=== PATIENT | male | born 1945 | race Caucasian/White ===

== ENCOUNTER 2021-06-17 09:39 | Inpatient (IN) | payer MEDICARE, SELFPAY ==
[2021-06-17] VITALS (65 sets, daily range): BP systolic 112–177; BP diastolic 60–102; PULSE 56–101; RESP 0–27; TEMP 36.6–36.9; O2SAT 86–99; BMI 31.3
--- NOTE | 2021-06-17 09:47 | XR_ITS ---
WS: [id number] PORTABLE CHEST HISTORY: dyspnea COMPARISON: 07/01/2007 Lung volumes are decreased. There is very mild reticular interstitial thickening at the LEFT lung bas e and lingula. This may all be related to poor inspiration. Pneumonitis is not excluded. No pleural e ffusion or pneumothorax. Cardiac size: Normal. Mediastinum/Aorta: Mild atherosclerosis aorta. No osseous abnormality seen. XR/XR chest 1V portable 45820 IMPRESSION: 1. Poor inspiration. 2. Thickened areas of reticulation in the LEFT lower lung field. May be relate d to atelectasis and poor inspiration but similar findings can be seen with pne umonitis.
--- NOTE | 2021-06-17 09:47 | ECG_ITS ---
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 Measurements Intervals [place] Rate: 60 P: 54 TN: 224 QRS: -13 QRSD: 107 T: 6 QT: 445 QTc: 447 Interpretive Statements SINUS RHYTHM WITH FIRST DEGREE AV BLOCK WITH OCCASIONAL SUPRAVENTRICULAR PREMATURE COMPLEXES No previous ECG available for comparison Electronically Signed On 06-17-2021 22:14:45 CDT by Dipti Shah M.D. [id number]
--- NOTE | 2021-06-17 09:47 | CT_ITS ---
WS: [id number] CT ANGIOGRAM CEREBRAL AND CAROTID ARTERIES HISTORY: CVA TECHNIQUE: CT angiogram is performed of the carotid and cerebral arteries. During arterial injection imaging is obtained from the skull vertex to the aortic arch in 1.25 mm imaging. Coronal and sagittal reformats are submitted. Additional multi planar reformats of the carotid and cerebral arteries are submitted, MIP imaging also reviewed. NASCET criteria utilized. [facility] CT scans at [facility] e at least one of these dose optimization techniques: automated exposure control; mA and/or kV adjust ment per patient size (includes targeted exams where dose is matched to clinical indication); or iter ative reconstruction. CONTRAST: Omnipaque 350; 95 mL IV. DLP: 2519.84 mGy.cm COMPARISON: Noncontrast CT head. Carotid Angiogram: Right carotid: Common carotid artery: Arises normally from the innominate artery. No significant plaque or stenosis. Internal carotid artery: Minimal scattered plaque the bifurcation with no stenosis. External carotid artery: Patent. Left carotid: Common carotid artery: Arises normally from the aorta. No significant plaque or stenosis. Internal carotid artery: Mild plaque and intimal thickening at the bifurcation. External carotid artery: Patent. Right vertebral artery: Unremarkable. Left vertebral artery: Dominant and normally arises from the LEFT subclavian artery. Subclavian arteries: No stenosis or significant abnormality. Upper thorax: Normal. Thyroid gland: Normal. Osseous structures: Increase in cervical lordosis. CEREBRAL ANGIOGRAM: Intracranial vertebral arteries: Dominant LEFT vertebral artery is patent. No thrombus. Normal RIGHT vertebral artery. Basilar artery: No significant stenosis or occlusion. No aneurysm. Intracranial Internal carotid arteries: Opacification through the petrous portion of the intracranial carotid arteries limited but there is no occlusion. No thrombus identified. Moderate scattered plaqu e through the cavernous and supraclinoid portion of the ICA. Middle cerebral arteries: Very mild luminal irregularity. LEFT M1 segment is not as well opacified an d enhancing as the RIGHT. Focal area of nonenhancement in the distal LEFT M1 segment may be an area o f thrombus or stenosis measuring only 3 mm. Anterior cerebral arteries and ACOM: Normal. Posterior cerebral arteries and PCOM's: Normal. Dural venous sinuses are normally enhancing. Mastoid air cells: Normal. Paranasal sinuses: Mild mucoperiosteal thickening in the frontal ethmoid recesses. Calvarium: Normal. CT/CT angio headneck* [id number] IMPRESSION: 1. No cervical carotid significant stenosis. Mild atherosclerosis. 2. Short segment thrombus versus stenosis involving the distal LEFT M1 segment . Additional mild atherosclerotic disease within the LEFT proximal M1 segment. 3. No cerebral aneurysm.
--- NOTE | 2021-06-17 09:47 | CT_ITS ---
WS: [id number] CT HEAD NONCONTRAST HISTORY: Symptoms of Acute Stroke TECHNIQUE: Contiguous axial imaging performed through the brain in 2.5 mm imaging. Bone and soft tiss ue windows. Sagittal and coronal reformats reviewed. All CT scans at [facility] use at least one of these dose optimization techniques: automated exposure control; mA and/or kV adjustment per pa tient size (includes targeted exams where dose is matched to clinical indication); or iterative recon struction. DLP: 111-2.45 mGy-cm. COMPARISON: None available. No acute intracranial hemorrhage, midline shift or mass effect. Very mild atrophy and mild chronic microvascular ischemic disease. Ventricles: Normal size with no hydrocephalus. No inferior displacement of the cerebellar tonsils. Clivus and pituitary gland are negative. Paranasal sinuses: Very minimal mucoperiosteal thickening in the frontal ethmoid recesses. No air-flu id levels. Mastoid air cells: Well pneumatized. Calvarium and scalp: Skull is intact with no soft tissue edema or swelling. There is mild increased density in the distal LEFT vertebral artery and also in the RIGHT MCA. Not li lala thrombosis due to the distribution and clinical symptoms. Follow-up angiogram will be performed. CT/CT head wo con* [id number] IMPRESSION: 1. No acute intracranial hemorrhage or edema. 2. Mild atrophy and mild chronic microvascular ischemic disease. Notified J Luis Jarrett DO at 06/17/2021 9:58 AM.
[2021-06-17 10:13] LABS: Basophils # 0.1 10^3/uL (0.0-0.1); Basophils % 0.9 %; Eosinophils # 0.2 10^3/uL (0.0-0.8); Eosinophils % 2.6 %; Hematocrit 49.6 % (42.0-52.0); Hemoglobin 14.9 g/dL (11.7-16.6); Lymphocytes # 2.7 10^3/uL (0.8-4.8); Lymphocytes % 33.9 %; Mean Corpuscular Volume 96.7 fl (80-94); Mean Platelet Volume 10.8 fL (7.4-10.4); Monocytes # 0.8 10^3/uL (0.2-0.9); Monocytes % 10.6 %; Neutrophils # 4.05 10^3/uL (1.8-7.7); Neutrophils % 51.7 %; Nucleated Red Blood Cells % 0 %; Platelet Count 306 10^3/cmm (130-400); Red Blood Count 5.13 10^6/uL (4.1-5.3); Red Cell Distribution Width 14.6 % (12.1-15.1); White Blood Count 7.8 10^3/uL (4.0-10.0)
[2021-06-17 10:16] LABS: Partial Thromboplastin Time 24.5 SECONDS (23.9-36.7)
[2021-06-17 10:17] LABS: Glucose Point of Care 161 mg/dL (70-110)
--- NOTE | 2021-06-17 10:17 | ED_ITS ---
HPI - Neuro Symptoms/Deficit General: Chief Complaint: Neuro Symptoms/Deficit Stated Complaint: STROKE ALERT Time Seen by Provider: 06/17/21 09:47 History of Present Illness: HPI Narrative: 75-year-old male presents emergency room via EMS. Last known normal reported to be 905 a stroke alert was called patient right-sided weakness and complete aphasia. On his arrival here Dr. Fink seen the patient scored him on the NIH score and ordered TPA. Onset (ago): minute(s) Timing confirmed by: spouse Location: speech, right face, right arm and right leg History of same: No Severity: severe Quality: weak and numb Relieving factors: none Exacerbating factors: none Context: sudden onset Associated symptoms: Deny chest pain, cough, diaphoresis, fevers/chills, headache(s), anorexia, malaise, nausea, seizures, short of breath, syncope, tingling, vertigo, vomiting or weakness Treatments Prior to Arrival: none Review of Systems General: Reports: Other (Limited HPI from the .) Const: Denies: malaise or diaphoresis Card: Denies: chest pain or syncope GI: Denies: nausea or vomiting Neuro: Denies: headache(s) or vertigo NIH stroke score NIHSS: Level Of Consciousness - 1a: 0 Level Of Consciousness Questions - 1b: One Correct Level Of Consciousness Commands - 1c: Both Correct Best Gaze - 2: Normal Visual Galvez - 3: No Visual Loss Facial Palsy - 4: Normal Motor Arm Right - 5: No Drift Motor Arm Left - 5: No Drift Motor Leg Right - 6: No Drift Motor Leg Left - 6: No Drift Limb Ataxia - 7: Absent Sensory - 8: Normal Best Language - 9: Mild/Moderate Aphasia Dysarthia - 10: Normal Extinction And Inattention - 11: 0 Score: Total Score: 2 Physical Exam Const: COMMON NORMALS: no acute distress GENERAL APPEARANCE: cooperative and comfortable ORIENTATION/CONSCIOUSNESS: Yes awake HENMT: COMMON NORMALS: normocephalic, atraumatic, hearing grossly normal bilaterally, external ears normal, EAC's normal, TM's normal bilaterally, Normal nasal mucous membranes and turbinates present, moist oral mucous membranes and oropharynx normal HEAD & SCALP: normocephalic and atraumatic NOSE: Normal nasal mucous membranes and turbinates present EXTERNAL EAR: Yes external ears normal EXTERNAL AUDITORY CANAL: EAC's normal TYMPANIC MEMBRANE: TM's normal bilaterally Eye: COMMON NORMALS: Equal, round and reactive pupils present, EOMs intact bilaterally, conjunctivae normal and no scleral icterus CONJUNCTIVA: Yes conjunctivae normal PUPIL: Yes Equal, round and reactive pupils present Neck/C-Spine: COMMON NORMALS: full ROM, no lymphadenopathy, supple and no JVD Lymph: LYMPHATIC: no lymphadenopathy noted and no lymphedema noted Resp: COMMON NORMALS: normal respiratory effort, No retractions, No use of accessory muscles and clear to auscultation bilaterally AUSCULTATION: clear to auscultation bilaterally Cardio: COMMON NORMALS: no JVD, regular rate, regular rhythm and No murmurs present (Cardio) RATE: regular rate RHYTHM: regular rhythm GI: COMMON NORMALS: Soft to palpation and No hepatosplenomegaly present AUSCULTATION: Yes normoactive bowel sounds PALPATION: Yes Soft to palpation, No Tenderness to palpation present (GI), No Guarding due to palpation present (GI) and Yes No hepatosplenomegaly present Extremity: COMMON NORMALS: normal to inspection, capillary refill normal, no clubbing, cyanosis or edema, no calf tenderness and no pedal edema Skin: COMMON NORMALS: no rashes or lesions noted GENERAL SKIN EXAM: no rashes or lesions noted Course Vital Signs: Vital signs: Vital Signs Temperature 97.7 F 06/18/21 18:40 Pulse Rate 63 06/18/21 17:00 Respiratory Rate 16 06/18/21 17:00 Blood Pressure 151/77 06/18/21 17:30 Pulse Oximetry 96 06/18/21 13:30 MDM - Neuro Symptoms/Deficit MDM Narrative: Medical decision making narrative: Initially patient was completely aphasic. That improved and his sided weakness had improved. We will go ahead and admit discussed with hospitalist. Orders written admit to the ICU. Lab Data: Labs: Lab Results 06/17/21 06/17/21 06/17/21 09:43 09:43 09:43 WBC 7.8 10^3/uL 10^3/ uL (4.0-10.0) RBC 5.13 10^6/uL 10^6 /uL (4.1-5.3) Hgb 14.9 g/dL g/dL (11.7-16.6) Hct 49.6 % % (42.0-52.0) MCV 96.7 fl H fl (80-94) MCH 29.0 pg pg (28.0-34.0) MCHC 30.0 g/dL g/dL (30.0-36.0) RDW 14.6 % % (12.1-15.1) Plt Count 306 10^3/cmm 10^3 /cmm (130-400) MPV 10.8 fL H fL (7.4-10.4) Neut % (Auto) 51.7 % % Lymph % (Auto) 33.9 % % [place] % (Auto) 10.6 % % Eos % (Auto) 2.6 % % Baso % (Auto) 0.9 % % Neut # (Auto) 4.05 10^3/uL 10^3 /uL (1.8-7.7) Lymph # (Auto) 2.7 10^3/uL 10^3/ uL (0.8-4.8) [place] # (Auto) 0.8 10^3/uL 10^3/ uL (0.2-0.9) Eos # (Auto) 0.2 10^3/uL 10^3/ uL (0.0-0.8) Baso # (Auto) 0.1 10^3/uL 10^3/ uL (0.0-0.1) Nucleated RBC % (a uto) 0 % % Nucleated RBCs # 0.0 /100WBC /100W BC PT 13.50 SECONDS SEC ONDS (12.1-14.9) INR 1.00 (0.8-1.2) APTT 24.5 SECONDS SECO NDS (23.9-36.7) Sodium 140 mmol/L mmol/L (136-145) Potassium 3.9 mmol/L mmol/L (3.5-5.1) Chloride 104 mmol/L mmol/L (98-107) Carbon Dioxide 23 mmol/L mmol/L (22-29) Anion Gap 16.9 (5-19) BUN 16 mg/dL mg/dL (8-23) Creatinine 0.9 mg/dL mg/dL (0.7-1.2) GFR Calculation Not Reportable Glucose 151 mg/dL H mg/dL (65-115) POC Glucose Estimat Average Gl ucose Hemoglobin A1c Calculated Osmolal ity 294 mOsm/kg mOsm/ kg (285-295) Calcium 9.3 mg/dL mg/dL (8.5-10.5) Total Bilirubin 0.4 mg/dL mg/dL (0.15-1.2) AST 15 U/L U/L (0-40) ALT 21 U/L U/L (0-41) Alkaline Phosphata se 29 IU/L L IU/L (40-130) Total Protein 7.6 g/dL g/dL (6.6-8.7) Albumin 4.3 g/dL g/dL (3.5-5.2) Globulin 3.3 g/dL g/dL (1.3-4.6) Triglycerides Cholesterol LDL Cholesterol, C alc HDL Cholesterol LDL/HDL Ratio Cholesterol/HDL Ra ramona 06/17/21 06/17/21 06/17/21 09:43 09:43 10:13 WBC RBC Hgb Hct MCV MCH MCHC RDW Plt Count MPV Neut % (Auto) Lymph % (Auto) [place] % (Auto) Eos % (Auto) Baso % (Auto) Neut # (Auto) Lymph # (Auto) [place] # (Auto) Eos # (Auto) Baso # (Auto) Nucleated RBC % (a uto) Nucleated RBCs # PT INR APTT Sodium Potassium Chloride Carbon Dioxide Anion Gap BUN Creatinine GFR Calculation Glucose POC Glucose 161 mg/dL H mg/dL (70-110) Estimat Average Gl ucose 111 Hemoglobin A1c 5.5 % % (4.0-6.0) Calculated Osmolal ity Calcium Total Bilirubin AST ALT Alkaline Phosphata se Total Protein Albumin Globulin Triglycerides 148 mg/dL mg/dL (0-150) Cholesterol 203 mg/dL H mg/dL (0-200) LDL Cholesterol, C alc 137 mg/dL H mg/dL (50-129) HDL Cholesterol 36 mg/dL L mg/dL (60-100) LDL/HDL Ratio 3.81 RATIO H RATI O (0.00-3.22) Cholesterol/HDL Ra ramona 5.64 mg/dL H mg/d L (1.0-5.00) Critical Care Time Critical Care Time: Critical Care Time: Yes Total Critical Care Time: 20 Attestation: This case had a high probability of a clinically significant, sudden, or life threatening deterioration of this patient's condition which required my full and direct attention, intervention and personal management. Discharge Plan Discharge Patient Disposition: Admitted As Inpatient Admit Provider: Vandana Laughlin Clinical Impression: Cerebrovascular accident Condition: Stable Discharge Diet: Cardiac and Low Cholesterol Discharge Activity: Resume usual activity Coding Level of Care Code ED Passenger Car Cleaning Supervisor for Vlad Herr
--- NOTE | 2021-06-17 10:26 | PM.SAN ---
Stroke Alert Activation ED Arrival Date: 06/17/21 ED Arrival Time: 09:38 ED Physican at Bedside: 09:47 Last Known Normal/at Baseline: < 1 hour ago Other Last Known Well Infomation: Stroke alert was activated by [facility] at 09 27 for this 75-year-old man who had witnessed onset of right hemiplegia, global aphasia and left gaze preference while he was with his . They had an intimate experience and he was talking normally when he stepped onto the scales in the bathroom and suddenly lost the ability to speak. When [facility] arrived he was flaccid on the right side, globally aphasic and had a left gaze preference. I was present as EMS brought him into CAT scan and those were the findings on exam. He had no response to threat on the right visual galvez. CAT scan was completed and showed no abnormalities. The [place] was well visualized and there was no gross clot. I sent the nurse back to obtain the TPA and mix it up and accompanied the patient to be weighed and onto his room. I found his in the waiting room, talked with her by phone and asked her to come back and review the history and agreed to TPA treatment. I examined the patient multiple times in the course of his transfer back to the room and then again prior to bolus of TPA. His physical exam improved by the time he completed his CT of the head but he continued to demonstrate dense receptive aphasia to the point that he could follow no commands, even simple commands, and did not follow visual cues. He went from speaking garbled repetitive sounds to I am fine which he stated with any stimulation. He continued to demonstrate right visual field cut to threat, weakness of the right side of the face and drift of the right upper extremity but not the leg. His score on NIH stroke scale at the time of bolus was 12. Bolus was administered at 0959, 56 minutes from time of symptom onset and 21 minutes from arrival to the emergency department. I took time to talk with the patient's about his stroke and I used the stroke education manual to help her understand his deficit and the blood clot causing the deficit. The appropriate treatment with TPA was reviewed. Plan of care was reviewed with Dr. Jarrett and the patient will be going for CT angiogram to make sure he does not have a clot that could be removed by embolectomy. Since he had onset of symptoms after intimate relations with his it would be a good idea not only to perform transthoracic echocardiogram but go ahead with transesophageal echocardiogram as soon as possible to rule out PFO. Stroke Alert Activated by: [facility] Stroke Alert Activation Time: : Stroke MD @ Bedside Time: : NIH Stroke Scale Time: :45 NIH stroke score NIHSS: Level Of Consciousness - 1a: 2 Level Of Consciousness Questions - 1b: Neither Correct Level Of Consciousness Commands - 1c: Neither Correct Best Gaze - 2: Normal Visual Galvez - 3: Partial Hemianopia Facial Palsy - 4: Partial Paralysis Motor Arm Right - 5: Drift Motor Arm Left - 5: No Drift Motor Leg Right - 6: No Drift Motor Leg Left - 6: No Drift Limb Ataxia - 7: Present In One Limb Sensory - 8: Normal Best Language - 9: Severe Aphasia Dysarthia - 10: Normal Extinction And Inattention - 11: 0 Score: Total Score: 13 Stroke Alert Data/Treatment Time to CT of Head: :38 CT Results Time: :44 CT Impression: Normal Stroke Risk Factors: hypertension tPA Started Time: tPA Started - Time: :59 tPA Admin Prior to Arrival: No Patient & Family Educated on: Cause of Stroke, Risk Factors, Treament Plan, Stroke Education Booklet and tPA Risks/Benefits Standardized Stroke Orders Used: Yes Other Information: CT angiogram stat Critical Care Time Critical Care Time: 30 - 74 mins A&P Assessment and plan (1) Left middle cerebral artery stroke: Healthy 75-year-old man with left middle cerebral artery stroke. Although his symptoms changed from complete left middle cerebral artery or carotid occlusion at presentation, at the present time he still has posterior branch left middle cerebral artery involvement with dense receptive aphasia, right visual field cut and some degree of weakness in the right arm with ataxia. He still has a significant deficit. He would be a candidate for embolectomy if he has an M1 clot. He is in the process of work-up. CTA is planned. I have discussed the case with Dr. Jarrett. I will be in attendance for further treatment. I reviewed the plan with his and went over the stroke book with her. I have been involved in the patient's care for the past hour. Status: Acute Coding Level of Care Code Acute Pigment And Lacquer Mixer for Vlad Herr Diagnoses Left middle cerebral artery stroke I63.512
[2021-06-17 10:31] LABS: Alanine Aminotransferase 21 U/L (0-41); Albumin Level 4.3 g/dL (3.5-5.2); Alkaline Phosphatase 29 IU/L (40-130); Anion Gap 16.9 (5-19); Aspartate Amino Transferase 15 U/L (0-40); Blood Urea Nitrogen 16 mg/dL (8-23); Calcium 9.3 mg/dL (8.5-10.5); Carbon Dioxide 23 mmol/L (22-29); Chloride 104 mmol/L (98-107); Globulin 3.3 g/dL (1.3-4.6); Glucose 151 mg/dL (65-115); Osmolality Calculated 294 mOsm/kg (285-295); Potassium 3.9 mmol/L (3.5-5.1); Sodium 140 mmol/L (136-145); Total Bilirubin 0.4 mg/dL (0.15-1.2); Total Protein 7.6 g/dL (6.6-8.7)
--- NOTE | 2021-06-17 10:50 | PC.PHAR ---
pt unable to verify medications-rx filled on 03/28/21 90d/s for fenofibrate 145mg pts unsure if pt takes-pts verified pts medications
[2021-06-17] MEDS: iohexol 350 mg/mL 100 mL Btl IV (11:21)
--- NOTE | 2021-06-17 20:20 | P.HP_ITS ---
Providers/Chief Complaint Admitting Physician: Vandana Laughlin MD Chief Complaint: STROKE ALERT History of Present Illness Sami Mondragon is a 75 year old male Who presented to the hospital with right hemiplegia, global aphasia, left gaze preference while he was with his . Patient states that he was in the bathroom using the scale and he suddenly lost ability to speak. He said he could not talk and he also experienced right-sided weakness. When he came to the hospital he was given medication and right now he feels a lot better. At the point of admission patient symptoms had resolved and he felt back to his baseline. Chart reviewed and following information is obtained from Dr. Fink's note. Patient presented with global aphasia right hemiplegia left gaze preference stroke alert was activated. NIH stroke scale was 12 on arrival. TPA was given 56 minutes from time of symptom onset and 21 minutes from arrival to emergency department. By the time head CT was completed he continued to demonstrate dense receptive aphasia to the point he could follow commands even simple commands and did not follow visual cues. He went from speaking garbled repetitive sounds to I am fine. Patient did have CT angiogram to rule out possible clot that could be removed by embolectomy. CT angio did show short segment thrombus versus stenosis involving left distal M1 segment. [facility] was called from the ER but they did not believe that patient had an embolus after reviewing images. At this point when patient is seen he feels well and has no complaints. He states he takes a cholesterol medication called fenofibrate at home and feels generally healthy he also has mild high blood pressure for which he takes los chaiyto. He denies any history of strokes in the family and has never had a stroke before. Review of Systems General: Reports: 10 or more systems reviewed and unremarkable except in HPI and below Medications/Allergies Home Medications Medication Instructions Recorded Confirmed Last Taken Type aspirin [Aspir-81] 81 mg PO DAILY 06/17/21 06/17/21 Unknown History fenofibrate nanocrystallized 145 mg PO DAILY 06/17/21 06/17/21 Unknown History glucos sul 9BXs-slp-zkqdw-C-Mn 1 - 2 cap PO DAILY 06/17/21 06/17/21 Unknown History [Glucosamine Chondroitin] losartan 50 mg PO DAILY 06/17/21 06/17/21 Unknown History vit C,A-Zv-wfgmq-lutein-zeaxan 1 cap PO DAILY 06/17/21 06/17/21 Unknown History [PreserVision AREDS-2] Allergies Allergy/AdvReac Type Severity Reaction Status Date / Time No Known Allergies Allergy Verified 06/17/21 10:49 Vitals/I&O/Wt Last Vital Signs Temp 98.4 F 06/17/21 09:49 Pulse 71 06/17/21 19:58 Resp 16 06/17/21 19:58 BP 161/72 06/17/21 19:58 Pulse Ox 98 06/17/21 19:58 06/17/21 06/17/21 06/17/21 06:59 14:59 22:59 Intake Total 100 / 100 Balance 100 / 100 Weight last 48 hrs Weight 110.677 kg Physical Exam Narrative: EXAM NARRATIVE: General: Alert oriented x3, patient seen _sitting up in bed in ER room 11. HEENT: Normocephalic, atraumatic, EOMI, breathing room air Cardio: Regular rate rhythm, normal S1-S2, no murmurs rubs gallops, Respiratory: Good bilateral air entry, no wheezes no rhonchi appreciated GI: Abdomen soft, nontender, nondistended, bowel sounds + Behavior: Appropriate and cooperative Extremities: Pulses 2+, no edema, no cyanosis Neuro: Cranial nerves II to XII intact, strength 4 out of 5 bilateral lower extremities, 4 out of 5 bilateral upper extremities. Strength equal on both sides at this point. Able to answer questions appropriately no focal neurologic deficits noted. Speech clear. Was able to have a conversation with me. Data : 06/17/21 09:43 06/17/21 09:43 A&P Assessment and plan (1) Left middle cerebral artery stroke: Patient diagnosed with left middle cerebral artery stroke We will check lipid panel, hemoglobin A1c We will repeat CT head in a.m. to ensure no hemorrhage Patient did receive TPA We will start aspirin Plavix, atorvastatin 80 mg tomorrow We will order GEO to rule out PFO Dr. Fink will see the patient in 2 weeks time in her clinic Continue neurochecks Monitor in ICU for post TPA care Order physical therapy, OT Fluids: None indicated Electrolytes: Replete as needed Nutrition: N.p.o. until bedside swallow eval. If patient fails that we will do official speech swallow eval Activity: As tolerated. Patient is back to baseline DVT prophylaxis: Patient received TPA today. We will hold prophylaxis for today. Will apply mechanical device. Status: Acute Attestations Medical Necessity Statement*: Needs ICU care today for post tpa Time Spent in Patient Care: 16 - 35 minutes Coding Level of Care Code Acute Photography Sales Associate for Vlad Herr Diagnoses Left middle cerebral artery stroke I63.512
[2021-06-17 20:49] LABS: Estmated Average Glucose 111; Hemoglobin A1C 5.5 % (4.0-6.0)
[2021-06-17 20:55] LABS: Chol HDL Ratio 5.64 mg/dL (1.0-5.00); Cholesterol 203 mg/dL (0-200); HDL Cholesterol 36 mg/dL (60-100); LDL Cholesterol Calculated 137 mg/dL (50-129); LDL HDL Ratio 3.81 RATIO (0.00-3.22); Triglycerides 148 mg/dL (0-150)
--- NOTE | 2021-06-17 21:50 | PC.NURSE ---
On admission to ICU, NIHSS is 2 with patient having minor difficulty finding words to describe items and minor facial paralysis with the inability to smile on the left side. VS are q1 hr x 16. Patient is comfortably watching TV and resting.
[2021-06-17] MEDS: D5-NS 0.45% + KCL 20 mEq 20 MEQ/1,000 ML BAG 100 MEQ IV (22:19)
[2021-06-17] MEDS: atorvastatin 40 mg Tablet 80 MG PO (22:19)
[2021-06-17 22:52] LABS: Lactic Sepsis W/Reflex 1.2 mmol/L (0.5-2.2)
[2021-06-18] VITALS (96 sets, daily range): BP systolic 116–158; BP diastolic 55–80; PULSE 52–87; RESP 6–23; TEMP 36–36.6; O2SAT 93–98; BMI 31.3
[2021-06-18] MEDS: acetaminophen 325 mg Tablet 650 MG PO (03:27)
[2021-06-18 04:57] LABS: Basophils # 0.1 10^3/uL (0.0-0.1); Basophils % 0.8 %; Eosinophils # 0.1 10^3/uL (0.0-0.8); Eosinophils % 1.1 %; Hematocrit 44.6 % (42.0-52.0); Hemoglobin 14.4 g/dL (11.7-16.6); Lymphocytes # 1.3 10^3/uL (0.8-4.8); Mean Corpuscular HGB Conc 32.3 g/dL (30.0-36.0); Mean Corpuscular Hemoglobin 29.3 pg (28.0-34.0); Mean Corpuscular Volume 90.8 fl (80-94); Mean Platelet Volume 10.3 fL (7.4-10.4); Monocytes # 0.7 10^3/uL (0.2-0.9); Neutrophils # 5.73 10^3/uL (1.8-7.7); Neutrophils % 72.7 %; Nucleated Red Blood Cells % 0 %; Platelet Count 255 10^3/cmm (130-400); Red Blood Count 4.91 10^6/uL (4.1-5.3); Red Cell Distribution Width 14.4 % (12.1-15.1); White Blood Count 7.9 10^3/uL (4.0-10.0)
[2021-06-18 05:25] LABS: Alanine Aminotransferase 17 U/L (0-41); Albumin Level 4.2 g/dL (3.5-5.2); Alkaline Phosphatase 28 IU/L (40-130); Anion Gap 12.1 (5-19); Aspartate Amino Transferase 13 U/L (0-40); Blood Urea Nitrogen 10 mg/dL (8-23); Calcium 9.5 mg/dL (8.5-10.5); Carbon Dioxide 26 mmol/L (22-29); Chloride 104 mmol/L (98-107); Globulin 2.9 g/dL (1.3-4.6); Glucose 121 mg/dL (65-115); Osmolality Calculated 286 mOsm/kg (285-295); Potassium 4.1 mmol/L (3.5-5.1); Sodium 138 mmol/L (136-145); Total Bilirubin 0.3 mg/dL (0.15-1.2); Total Protein 7.1 g/dL (6.6-8.7)
--- NOTE | 2021-06-18 08:00 | CT_ITS ---
WS: [id number] CT HEAD NONCONTRAST HISTORY: Follow up. S/P tpa 24 hours TECHNIQUE: Contiguous axial imaging performed through the brain in 2.5 mm imaging. Bone and soft tiss ue windows. Sagittal and coronal reformats reviewed. All CT scans at [facility] use at least one of these dose optimization techniques: automated exposure control; mA and/or kV adjustment per pa tient size (includes targeted exams where dose is matched to clinical indication); or iterative recon struction. DLP: 1204.61 mGy.cm COMPARISON: 06/17/2021 No acute intracranial hemorrhage, midline shift or mass effect. Very mild atrophy and chronic microvascular ischemic change. No hemorrhagic transformation. New area of very subtle decreased attenuation in the posterior LEFT frontal lobe. This may have been the area of infarction but this is very subtle and closely associated with the prominent sulcus. Ventricles: Normal size with no hydrocephalus. Paranasal sinuses: As visualized are clear. Mastoid air cells: Well pneumatized. Calvarium and scalp: Skull is intact with no soft tissue edema or swelling. CT/CT head wo con* [id number] IMPRESSION: 1. No hemorrhagic transformation. 2. Possible tiny lacunar infarct in the posterior LEFT frontal cortex. Indeter minate for the site of recent ischemia.
--- NOTE | 2021-06-18 08:58 | P.PN_ITS ---
Vitals/I&O/Wt Last Vital Signs Temp 97.6 F 06/18/21 03:00 Pulse 59 L 06/18/21 06:00 Resp 13 06/18/21 06:00 BP 138/67 06/18/21 06:00 Pulse Ox 94 06/18/21 06:00 06/17/21 06/18/21 06/18/21 22:59 06:59 14:59 Output Total 300 / 300 800 / 1100 Balance -300 / -200 -800 / -1000 Weight last 48 hrs Weight 244 lb Weight 244 lb Physical Exam Narrative: EXAM NARRATIVE: He was a to repeat a simple phrase with difficulty. He was able to say his name. He has trouble following a complex command. I agree with Dr. Qian Ross that he has hesitation of speech consistent with mild expressive aphasia. His visual field defect has resolved. No drift. Strength full in all 4 extremities. 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 Appropriate management of left middle cerebral artery stenosis involves management of risk factors. Initiate Plavix, aspirin and atorvastatin. I will be glad to see him in the office in several weeks and go over this with him. I went over the stroke book with his yesterday. It would be worthwhile to do MRI with MR angiogram without contrast as an outpatient prior to my visit with him. Status: Acute Attestations Medical Necessity Statement*: Acute stroke treated with TPA Time Spent in Patient Care: less than 15 minutes Coding Level of Care Code Acute Pediatric Dermatologist for Vlad Herr Diagnoses Left middle cerebral artery stroke I63.512
--- NOTE | 2021-06-18 09:23 | PC.CHAP ---
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 [] Patient/Family/Request visit [] Outpatient visit [] Follow-up visit [] Physician referral [] Code/Alert [x] Routine visit [] Staff referral [] Actively dying [] Patient sleeping [] Family support [] [] Out of room [] Palliative care [] [x] Receiving care in room [] Pre-surgical visit [] Trauma [] Long length of stay [x] ICU visit [] Other: Relational/Emotional Strength [] Patient feels connected with others/family/visitors/staff [] Distress [] Loneliness/isolation [] Abandonment Spirituality of Patient [] Person of Rachel [] Attends Sabianism of their Rachel [] Believes in Prayer [] Reads Bible or Lutheran materials [] There are Spiritual issues to be addressed Director Television Interventions [x] Prayer [] Active listening [] Non-anxious presence [] Spiritual/emotional support [] Crisis/trauma care [] Spiritual counseling [] Bereavement support [] Provided bereavement packet [] Provided Bible/devotional materials [] Provided toy/stuffed animal, coloring book to patient or family member [] Provided Communion [] Anointing/[place] [] Salvation [x] Completed spiritual assessment [] Other: Impact on Illness or Injury [] Angry [] Fearful [] Anxious [] Often cries [] Exhaustion [] Unable to work [] Unable to attend restorationism [] Unable to walk/stand [] Unable to read [] Unable to drive [] Unable to eat/drink [] Unable to sleep [] Unable to be with family [] Patient intubated [] Other: Summary Time spent with patient
[2021-06-18 10:43] LABS: Basophils % 0.5 %; Eosinophils # 0.1 10^3/uL (0.0-0.8); Eosinophils % 1.3 %; Hematocrit 45.8 % (42.0-52.0); Hemoglobin 14.6 g/dL (11.7-16.6); Lymphocytes # 1.2 10^3/uL (0.8-4.8); Lymphocytes % 16.3 %; Mean Corpuscular HGB Conc 31.9 g/dL (30.0-36.0); Mean Corpuscular Hemoglobin 28.6 pg (28.0-34.0); Mean Corpuscular Volume 89.8 fl (80-94); Mean Platelet Volume 10.7 fL (7.4-10.4); Monocytes # 0.5 10^3/uL (0.2-0.9); Monocytes % 7.2 %; Neutrophils % 74.4 %; Nucleated Red Blood Cells % 0 %; Platelet Count 248 10^3/cmm (130-400); Red Cell Distribution Width 14.3 % (12.1-15.1); White Blood Count 7.5 10^3/uL (4.0-10.0)
[2021-06-18] MEDS: pantoprazole 40 mg SDV IVP (10:56)
--- NOTE | 2021-06-18 11:09 | PC.OT ---
OT EVALUATION ORDERS RECEIVED; OT SCREEN COMPLETED. PATIENT DEMONSTRATES NO DEFICITS IN UE ROM/MX STRENGTH, VISUAL TRACKING OR ADL PERFORMANCE. NO FURTHER SKILLED OT REQUIRED.
--- NOTE | 2021-06-18 11:39 | P.DS_ITS ---
Discharge Providers Date of Admission: 06/17/21 21:34 Date of Discharge: June 18, 2021 Attending Provider at Admission: Vandana Laughlin MD Attending Provider at Discharge: Vandana Laughlin MD Diagnoses at Discharge Discharge Diagnosis (1) Left middle cerebral artery stroke: Status: Resolved Reason for Visit Reason for Visit: STROKE ALERT Hospital Course Hospital Course Maximilian Mondragon is a 75 year old male Who presented to the hospital with right hemiplegia, global aphasia, left gaze preference while he was with his . Patient states that he was in the bathroom using the scale and he suddenly lost ability to speak. He said he could not talk and he also experienced right-sided weakness. When he came to the hospital he was given medication and right now he feels a lot better. At the point of admission patient symptoms had resolved and he felt back to his baseline. Chart reviewed and following information is obtained from Dr. Fink's note. Patient presented with global aphasia right hemiplegia left gaze preference stroke alert was activated. NIH stroke scale was 12 on arrival. TPA was given 56 minutes from time of symptom onset and 21 minutes from arrival to emergency department. By the time head CT was completed he continued to demonstrate dense receptive aphasia to the point he could follow commands even simple commands and did not follow visual cues. He went from speaking garbled repetitive sounds to I am fine. Patient did have CT angiogram to rule out possible clot that could be removed by embolectomy. CT angio did show short segment thrombus versus stenosis involving left distal M1 segment. [facility] was called from the ER but they did not believe that patient had an embolus after reviewing images. At this point when patient is seen he feels well and has no complaints. He states he takes a cholesterol medication called fenofibrate at home and feels generally healthy he also has mild high blood pressure for which he takes losartan. He denies any history of strokes in the family and has never had a stroke before. Course: Patient was admitted to the ICU for post TPA care. Overnight he did not develop any new symptoms. He was seen the next morning and he was doing well. He did have some word finding difficulty but other than that all the symptoms have resolved. I discussed with Dr. Fink at length. Plan is to do MRI brain and MRA brain as an outpatient. Echo with bubble study was also performed during inpatient admission but it was a difficult limited study and therefore GEO was recommended. GEO and cardiac event monitor will be placed as an outpatient. Dr. Fink will see the patient in 2 weeks time at the clinic. By the time he goes to a clinic the MRI GEO and cardiac event monitor should already be placed. He was discharged home on aspirin atorvastatin Plavix and his blood pressure medication. CT head without contrast was also done the next morning to rule out hemorrhagic conversion. There was no hemorrhagic conversion seen. Patient and his family updated at bedside. Of note during the time while he was in the ICU, an EKG was done by the nurses because they saw something questionable on telemetry. EKG report was okay. He did seem to have a first-degree AV block. Patient is not on any beta-blockers. He will be having the event monitor placed and a GEO as well. He will be following up with cardiology Dr. Shah to go over the results of the event monitor and GEO. Physical Exam Narrative: EXAM NARRATIVE: General: Alert oriented x3, patient seen _sitting up in bed in ICU room 8 with at bedside. HEENT: Normocephalic, atraumatic, EOMI, breathing room air Cardio: Regular rate rhythm, normal S1-S2, no murmurs rubs gallops, Respiratory: Good bilateral air entry, no wheezes no rhonchi appreciated GI: Abdomen soft, nontender, nondistended, bowel sounds + Behavior: Appropriate and cooperative Extremities: Pulses 2+, no edema, no cyanosis Neuro: Cranial nerves II to XII intact, strength 5 out of 5 bilateral lower extremities, 5 out of 5 bilateral upper extremities. Strength equal on both sides at this point. Able to answer questions appropriately no focal neurologic deficits noted. Speech clear. Did have some word finding difficulty was also present on admission. also noticed that. But overall patient doing well. Discharge Data Data Completed and Pending: Completed Studies During Hospitalization Category Date Time Status CT angio headneck * [id number] Stat Cat Scan 06/17/21 09:[address] head wo con* 7 0450 Stat Cat Scan 06/17/21 09:47 Completed XR chest 1V les ble [id number] Stat Exams 06/17/21 09:47 Completed Pending at discharge Category Date Time Status CT head wo con* 7 0450 Routine Cat Scan 06/18/21 08:00 Ordered Complete Blood Co unt w/Auto DAILY Lab 06/19/21 10:00 Ordered Complete Blood Co unt w/Auto DAILY Lab 06/20/21 10:00 Ordered Urinalysis Stat Lab 06/17/21 09:47 Uncollected Labs from last 24 hours 06/18/21 06/18/21 06/18/21 10:23 04:20 04:20 WBC 7.5 7.9 RBC 5.10 4.91 Hgb 14.6 14.4 Hct 45.8 44.6 MCV 89.8 90.8 D MCH 28.6 29.3 MCHC 31.9 32.3 D RDW 14.3 14.4 Plt Count 248 255 MPV 10.7 H 10.3 Neut % (Auto) 74.4 72.7 Lymph % (Auto) 16.3 16.0 Bureau % (Auto) 7.2 9.0 Eos % (Auto) 1.3 1.1 Baso % (Auto) 0.5 0.8 Neut # (Auto) 5.60 5.73 Lymph # (Auto) 1.2 1.3 Bureau # (Auto) 0.5 0.7 Eos # (Auto) 0.1 0.1 Baso # (Auto) 0.0 0.1 Nucleated RBC % (a uto) 0 0 Nucleated RBCs # 0.0 0.0 Sodium 138 Potassium 4.1 Chloride 104 Carbon Dioxide 26 Anion Gap 12.1 BUN 10 Creatinine 0.8 GFR Calculation Not Reportable Glucose 121 H Estimat Average Gl ucose Hemoglobin A1c Calculated Osmolal ity 286 Lactic Acid Calcium 9.5 Magnesium 2.0 Total Bilirubin 0.3 AST 13 ALT 17 Alkaline Phosphata se 28 L Total Protein 7.1 Albumin 4.2 Globulin 2.9 Triglycerides Cholesterol LDL Cholesterol, C alc HDL Cholesterol LDL/HDL Ratio Cholesterol/HDL Ra ramona 06/17/21 06/17/21 06/17/21 22:30 09:43 09:43 WBC RBC Hgb Hct MCV MCH MCHC RDW Plt Count MPV Neut % (Auto) Lymph % (Auto) Bureau % (Auto) Eos % (Auto) Baso % (Auto) Neut # (Auto) Lymph # (Auto) Bureau # (Auto) Eos # (Auto) Baso # (Auto) Nucleated RBC % (a uto) Nucleated RBCs # Sodium Potassium Chloride Carbon Dioxide Anion Gap BUN Creatinine GFR Calculation Glucose Estimat Average Gl ucose 111 Hemoglobin A1c 5.5 Calculated Osmolal ity Lactic Acid 1.2 Calcium Magnesium Total Bilirubin AST ALT Alkaline Phosphata se Total Protein Albumin Globulin Triglycerides 148 Cholesterol 203 H LDL Cholesterol, C alc 137 H HDL Cholesterol 36 L LDL/HDL Ratio 3.81 H Cholesterol/HDL Ra ramona 5.64 H Vitals: Last Vital Signs Temp 97.6 F 06/18/21 03:00 Pulse 59 L 06/18/21 09:30 Resp 12 06/18/21 09:30 BP 135/65 06/18/21 09:30 Pulse Ox 96 06/18/21 09:00 Discharge Plan Discharge Patient Disposition: Home Condition: Stable Prescriptions: New clopidogrel 75 mg Tablet 75 mg PO DAILY 30 Days Qty: 30 RF: 0 aspirin 81 mg Tablet,Delayed Release (Dr/Ec) 81 mg PO DAILY 30 Days Qty: 30 RF: 0 atorvastatin 80 mg tablet 80 mg PO DAILY 30 Days Qty: 30 RF: 1 Continued losartan 50 mg tablet 50 mg PO DAILY RF: 0 Discontinued aspirin [Aspir-81] 81 mg Tablet,Delayed Release (Dr/Ec) 81 mg PO DAILY RF: 0 fenofibrate nanocrystallized 145 mg tablet 145 mg PO DAILY RF: 0 PreserVision AREDS-2 250-90-40-1 mg Capsule 1 cap PO DAILY RF: 0 Glucosamine Chondroitin 550-30-1 mg Capsule 1 - 2 cap PO DAILY RF: 0 Discharge Orders: Discharge Order (Routine); Ordered 06/18/21 Ordered By: Vandana Laughlin Other Ambulatory Orders: MR angio head wo con [id number] (Routine) Timeframe: 1 Week Facility: [facility] - Location: Radiology [place] [facility] Ordered By: Vandana Laughlin CV. echo transesophageal [id number] (Routine) Timeframe: 1 Week Location: [facility] Ordered By: Vandana Laughlin CA cardiac event monitor (Routine) Timeframe: 2 Days Facility: [facility] - Location: Cardiac Diagnostic Laboratory Ordered By: Vandana Laughlin MR head wo con RTP [id number] (Routine) Timeframe: 1 Week Facility: [facility] - Location: Radiology [place] [facility] Ordered By: Vandana Laughlin Referrals: CENTRALIZED SCHEDULING [Other] (CONVEYOR MAINTENANCE MECHANIC WILL FAX ORDERS /AND CALL SCHEDULEING TOMORROW FOR THE MRI/GEO /TEST . THEY WILL CALL YOU BACK WITH TIMES OF TESTING ) Nikole Fink MD [Physician] - 2 weeks (WILL NEED TO CALL [facility] TO SCHEDULE THIS FOLLOW UP APPOINTMENT. ) Devon Vasques MD [Non-Staff] - 2 weeks (MAXIMILIAN WILL CALL FOR THIS FOLLOW UP AT [facility] /WILL NEED FOR FOLLOW UP IN 1 TO 2 WEEKS ) Dipti Shah MD [Physician] - 2 weeks (Follow up event monitor and GEO, WILL NEED TO CALL [facility] FOR TOMORROW , AND/CONVEYOR MAINTENANCE MECHANIC WILL CALL TO HEART CARE SERVICES AND THEY WILL CALL YOU BACK FOR FOLLOW UP APPOINTMENT. AND FOR CARDIAC HEART MONITOR) Discharge Diet: Cardiac and Low Cholesterol Discharge Activity: Resume usual activity Patient Instructions: Aspirin (By mouth), Atorvastatin (By mouth) (Lipitor), Clopidogrel (By mouth) (Plavix), Heart Healthy Diet (DC), Ischemic Stroke (DC), Stroke (DC), Opioid Safety, Stroke Stoplight Activity Restrictions/Additional Instructions: Follow up with PCP in 1-2 weeks Discharge Attestations Time Spent in Discharge Care*: greater than 30 min Specific Discharge Activities: educating patient, educating and/or supporting family/caregiver, documenting/other paperwork and evaluating patient/reviewing data Status at Discharge: Cognitive status at discharge: cognitively intact , Behavioral status at discharge: cooperative , Functional status at discharge: independent ambulation Overall status at discharge: patient is back to baseline Quality Metrics Clinical Quality Measures During this hospital stay, did patient experience: Stroke Contraindication to Antithrombotic: Antithrombotic prescribed Contraindication to Anticoagulation: Anticoagulation prescribed Contraindication to Statin: Statin prescribed Contraindication to antithrombotic day 2: Antithrombotic given Contraindication to tPA: tPA given Onset of Symptoms Date: 06/17/21 Reason stroke education not provided: Stroke education provided to patient Coding Level of Care Code Acute Chg FW DC note Diagnoses Left middle cerebral artery stroke I63.512
--- NOTE | 2021-06-18 14:10 | ECG_ITS ---
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 Measurements Intervals Onset Rate: 59 P: 24 AZ: 211 QRS: -21 QRSD: 105 T: 4 QT: 395 QTc: 394 Interpretive Statements SINUS BRADYCARDIA WITH FIRST DEGREE AV BLOCK BORDERLINE LEFT AXIS DEVIATION [QRS AXIS < -20] LOW QRS VOLTAGE IN PRECORDIAL LEADS [QRS DEFLECTION < 1.0 mV IN CHEST LEADS] Compared to ECG 06/17/2021 10:12:51 Low QRS voltage now present Sinus rhythm no longer present Electronically Signed On 06-18-2021 20:13:38 CDT by Bang Hoskins M.D. [id number]
--- NOTE | 2021-06-18 14:31 | USCV_ITS ---
MondragonSami Age: 75 Gender: M : 1945 Exam Date: 06/18/2021 15:10 Ordering Phys: Vandana Laughlin MD Technologist: Agustin Simons [place] [facility] [place]ication: CVA ?PFO BP: 133 / 72 HR: 65 Rhythm: Sinus Technical Quality: Adequate MEASUREMENTS (Male / Female) Normal Values 2D ECHO LV Diastolic Diameter PLAX 4.2 cm 4.2 - 5.9 / 3.9 - 5.3 cm LV Systolic Diameter PLAX 2.5 cm IVS Diastolic Thickness 1.0 cm 0.6 - 1.0 / 0.6 - 0.9 cm IVS Systolic Thickness 1.8 cm LVPW Diastolic Thickness 1.2 cm 0.6 - 1.0 / 0.6 - 0.9 cm LVPW Systolic Thickness 1.5 cm LVOT Diameter 2.0 cm LV Ejection Fraction 2D Teich 72.0 % LV Ejection Fraction MOD 2C 51.3 % LV Ejection Fraction 2C AL 50.3 % LA Diameter 2.8 cm LA Width 4.7 cm LA Height 5.0 cm RA Width 4.0 cm RA Height 4.9 cm M-MODE LV Diastolic Diameter MM 5.7 cm 4.2 - 5.9 / 3.9 - 5.3 cm LV Systolic Diameter MM 3.8 cm LV Ejection Fraction MM Teich 60.9 % IVS Diastolic Thickness MM 1.1 cm 0.6 - 1.0 / 0.6 - 0.9 cm IVS Systolic Thickness MM 1.7 cm LVPW Diastolic Thickness MM 1.4 cm 0.6 - 1.0 / 0.6 - 0.9 cm LVPW Systolic Thickness MM 2.2 cm RV Diastolic Diameter MM 1.9 cm MV E Point Septal Separation 1.3 cm DOPPLER AV Peak Velocity 109.0 cm/s LVOT Peak Velocity 83.0 cm/s AV Area Cont Eq vti 2.0 cm squared AV Area Cont Eq pk 2.5 cm squared MV Area PHT 5.0 cm squared Mitral E to A Ratio 1.0 MV E' Velocity 41.5 cm/s Mitral E to MV E' Ratio 11.3 Mitral E to LV E' Lateral Ratio 9.7 Mitral E to LV E' Septal Ratio 13.5 TR Peak Velocity 123.3 cm/s TR Peak Gradient 6.1 mmHg TV Peak E Velocity 76.0 cm/s Right Atrial Pressure 3.0 mmHg Pulmonary Artery Systolic Pressu 9.1 mmHg FINDINGS Left Ventricle Normal left ventricular size, systolic function and wall thickness, with no regional wall motion abnormalities. Left ventricular ejection fraction is estimated at 60 %. Normal diastolic function. Right Ventricle Normal right ventricular size and systolic function. Right ventricular systolic pressure 9.1 mmHg. Right Atrium Normal right atrial size. No evidence of intracardiac shunt by bubble study. Left Atrium Normal left atrial size. Mitral Valve Structurally normal mitral valve. No mitral valve stenosis. Trace mitral valve regurgitation. Aortic Valve Aortic valve not well visualized. Probably trileaflet aortic valve. No aortic valve stenosis. No aortic valve regurgitation. Tricuspid Valve Structurally normal tricuspid valve. Pulmonic Valve Structurally normal pulmonic valve. No pulmonary valve stenosis. Trace pulmonary valve regurgitation. Pericardium No pericardial effusion. Aorta Normal-sized aortic root. CONCLUSIONS 1. Normal left ventricular size, systolic function and wall thickness, with no regional wall motion abnormalities. Left ventricular ejection fraction is estimated at 60 %. Normal diastolic function. 2. Normal right ventricular size and systolic function. 3. No evidence of intracardiac shunt by bubble study (poor quality). GEO is recommended to rule out cardioembolic source of stroke. Dipti Shah MD (Electronically Signed) Final Date: 18 June 2021 17:14 S
--- NOTE | 2021-06-18 14:35 | XR_ITS ---
WS: [id number] XR chest 1V portable [id number] REASON FOR EXAM: follow up pneumonitis FINDINGS: The chest is unchanged compared to previous examination of 06/17/2021. Heart and mediastinum are within normal limits. Infiltrates in both lower lobes and in the mid lung corral, dominant on the left. Degenerative changes in the mid and lower thoracic spine. XR/XR chest 1V portable [id number] IMPRESSION: Stable abnormal chest.
[2021-06-18 14:47] LABS: Add Urine Microscopic? NO; Charge for UA Resulting for Rev
[2021-06-18 15:07] LABS: Bilirubin Urine Neg (Negative); Blood Urine Neg (Negative); Glucose Urine UA Norm (Normal); Ketones Urine Negative (Negative); Leukocyte Esterase Urine Negative (Negative); Nitrate Urine Negative (Negative); Protein Urine Neg (Negative); Specific Gravity, Urine 1.005 (1.005-1.030); Urine Appearance Clear (CLEAR); Urine Color Straw (Yellow); Urobilinogen Urine 1 mg/dL (Negative); pH Urine 7 (5-7)
[2021-06-18 16:32] LABS: Troponin T (5th) Once 7 ng/L (0-15)
[2021-06-18] MEDS: aspirin 81 mg EC Tablet PO (18:51)
[2021-06-18] MEDS: clopidogrel 75 mg Tablet PO (18:51)
[2021-06-18] MEDS: atorvastatin 40 mg Tablet 80 MG PO (18:52)
--- NOTE | 2021-06-19 15:54 | PC.SOCIAL ---
discharge follow up call made, spoke with patients . she reports pt is doing good. denies any new stroke like symptoms. picked up all new medications from the pharmacy today and patient is taking as directed. she is aware of discontinued medications. had made all follow up appointments. discussed with that centralized scheduling would call with dates and times for mri, bus monitor and echo. no questions voiced at this time.
== END 2021-06-18 19:14 | disposition home or self-care (01) | DRG 62 ==
LOC: ER 14:56 → ICU 06-18 06:30
PROVIDERS: Admitting Provider Internal Medicine; Emergency Provider Family Medicine; Visit Provider Internal Medicine
DX: I63.512 Cerebral infarction due to unspecified occlusion or stenosis of left middle cerebral artery (principal); G81.91 Hemiplegia, unspecified affecting right dominant side; R47.01 Aphasia; R27.0 Ataxia, unspecified; H53.8 Other visual disturbances; R29.712 NIHSS score 12; I44.0 Atrioventricular block, first degree; Z79.82 Long term (current) use of aspirin
CPT/HCPCS: 36415; 36416; 70450; 70496; 70498; 71045; 80053; 80061; 81003; 82962; 83036; 83605; 83735; 84484; 85025; 85610; 85730; 92523; 92610; 93005; 93271; 94664; 96374; 97161; 99291; C8929; C9113; J2997; Q9967

== ENCOUNTER → 2021-07-08 11:37 | Outpatient (BNVA) | payer MEDICARE, SELFPAY | PROVIDERS: PCP Hospitalist; Referring Provider Internal Medicine; Visit Provider Specialist | DX: I66.02 Occlusion and stenosis of left middle cerebral artery (principal); I10 Essential (primary) hypertension; Z72.3 Lack of physical exercise; Z86.73 Personal history of transient ischemic attack (TIA), and cerebral infarction without residual deficits | CPT/HCPCS: 99204; 99205 ==

== ENCOUNTER → 2021-09-04 00:01 | Outpatient (BNVA) | payer MEDICARE, SELFPAY | PROVIDERS: PCP Hospitalist; Referring Provider Internal Medicine Cardiovascular Disease; Visit Provider Internal Medicine Cardiovascular Disease | DX: Z20.822 Contact with and (suspected) exposure to COVID-19 (principal); Z01.812 Encounter for preprocedural laboratory examination; I63.512 Cerebral infarction due to unspecified occlusion or stenosis of left middle cerebral artery; I44.0 Atrioventricular block, first degree | CPT/HCPCS: 87635 ==

== ENCOUNTER 2021-09-10 11:25 | Day surgery (SDC) | payer MEDICARE, SELFPAY ==
[2021-09-02 12:01] VITALS: BMI 32.3
--- NOTE | 2021-09-10 11:17 | P.ANESASSM_ITS ---
Pre-Anesthetic Assessment Pre-Anesthetic Assessment: Height/Weight: Height 1.85 m Weight 111.13 kg Preop Diagnosis: GEO to rule cardioembolic source of recent left CVA Proposed Procedure: Operation Date: 09/10/21 12:00 Proposed Procedures p GEO(Not Applicable) - Dipti Shah MD Familial anesthetic complications: None Was Beta David taken within 24 hours: N/A Was Clonidine taken within 24 hours: N/A Last intake: 09/09/20 Social: Social History: No tobacco Exam: Pre-Anes Outpt Exam: alert, oriented x 3, clear to auscultation bilaterally and regular rate & rhythm Airway: Submandibular: WNL Cervical ROM: WNL MP: 2 Dentition: Full History/ROS: No significant complaints Pulmonary: Pulmonary: None reported CV/HEM: CV/HEM: HTN Comments: DLD Holter 07/27 Report Conclusion: 1. Baseline normal sinus rhythm. Heart rate ranged from 46 to 139 bpm with average heart rate of 68 bpm. 2. 3 unspecified patient symptoms correlated with sinus rhythm or sinus tachycardia with heart rate ranging from 73-112 bpm. 1 episode correlated with isolated PAC. 3. 2% supraventricular ectopic beats and less than 1% ventricular ectopic beats during the study. 4. No episodes of atrial fibrillation throughout the study. TTE 06/18/21 CONCLUSIONS 1. Normal left ventricular size, systolic function and wall thickness, with no regional wall motion abnormalities. Left ventricular ejection fraction is estimated at 60 %. Normal diastolic function. 2. Normal right ventricular size and systolic function. 3. No evidence of intracardiac shunt by bubble study (poor quality). GEO is recommended to rule out cardioembolic source of stroke. EKG 06/26 SINUS BRADYCARDIA WITH FIRST DEGREE AV BLOCK BORDERLINE LEFT AXIS DEVIATION [QRS AXIS < -20] LOW QRS VOLTAGE IN PRECORDIAL LEADS [QRS DEFLECTION < 1.0 mV IN CHEST LEADS] Compared to ECG 06/17/2021 10:12:51 Low QRS voltage now present Sinus rhythm no longer present Electronically Signed On 06-18-2021 20:13:38 CDT by Bang Hoskins M.D. [email or web address] : : None reported Hepatic: Hepatic: None reported GI: GI: None reported Metabolic: Metabolic: None reported Musc/skel: Musc/skel: None reported Neuropsych: Neuropsych: CVA (Left MCA stenosis ) Comments: Head CT 06/26 CT/CT angio headneck* [id number] IMPRESSION: 1. No cervical carotid significant stenosis. Mild atherosclerosis. 2. Short segment thrombus versus stenosis involving the distal LEFT M1 segment. Additional mild atherosclerotic disease within the LEFT proximal M1 segment. 3. No cerebral aneurysm. Anesthetic Plan: ASA status: 3 (75 year old male with recent CVA (06/26), MCA stenosis, HTN) Anesthesia: General and MAC Other: We discussed risk and benefits of general and MAC anesthesia. We discussed the spectrum of anesthesia under MAC and possibility of intraoperative recall of stimuli including pain/discomfort and possibility of need to convert to general anesthesia w/ breathing device. Risk of > 500 ml blood loss (7ml/kg in children): No PFSH Anesthesia PFSH: Medical History Cerebrovascular accident Dyslipidemia HTN (hypertension) Data Anesthesia Cardiac Studies: Echocardiogram 06/18/21 Cardiac Event Monitor 07/08/21
[2021-09-10 11:48] VITALS: BP 131/69; PULSE 64; RESP 16; TEMP 36.3; O2SAT 97
[2021-09-10] MEDS: sodium chloride 0.9% 1,000 ML 30 ML IV (11:56)
--- NOTE | 2021-09-10 11:59 | USCV_ITS ---
Sami Mondragon Age: 75 Gender: M : 1945 Exam Date: 09/10/2021 12:10 Ordering Phys: Dipti Shah MD ([email or web address]) Technologist: Cheryl Vazquez [place] [facility] [place]: H/O CVA BP: / HR: Rhythm: Sinus Technical Quality: Good MEASUREMENTS (Male / Female) Normal Values Medications Patient given IV sedation by anesthesia service, for details please refer to the anesthesia report. Complications Intubation easy. Attempts x2. No blood on probe post procedure. Patient tolerated the procedure well. No complications post procedure. Proc. Components The patient was brought to the GEO examination room in a fasting state after obtaining an informed consent. The GEO probe was passed into the posterior pharynx , mid-esophagus, distal esophagus, and gastric fundus. FINDINGS Left Ventricle Normal left ventricular size, systolic function and wall thickness, with no regional wall motion abnormalities. Left ventricular ejection fraction is estimated at 60 %. Right Ventricle Normal right ventricular size and systolic function. Right Atrium Normal right atrial size. Left Atrium Normal left atrial size. LA Appendage Normal left atrial appendage. No thrombus visualized in the left atrial appendage. IA Septum Normal interatrial septum. Patent foramen ovale present with a [id number] shunt. Mitral Valve Structurally normal mitral valve. No mitral valve stenosis. Trace mitral valve regurgitation. Aortic Valve Structurally normal trileaflet aortic valve. No aortic valve stenosis. Trace aortic valve regurgitation. Tricuspid Valve Structurally normal tricuspid valve. No significant tricuspid valve regurgitation. Pulmonic Valve Structurally normal pulmonic valve. No pulmonary valve stenosis. Trace pulmonary valve regurgitation. Pericardium No pericardial effusion. Aorta Normal size aortic root and proximal ascending aorta. CONCLUSIONS 1. Normal left ventricular size, systolic function and wall thickness, with no regional wall motion abnormalities. Left ventricular ejection fraction is estimated at 60 %. 2. No left atrial or left atrial appendage thrombus. 3. No significant valvular normality. 4. Patent foramen ovale present with a [id number]-sbhf shunt. Dipti Shah MD (Electronically Signed) Final Date: 11 September 2021 13:40 S
--- NOTE | 2021-09-10 12:03 | W.PM.OPSUD ---
Surgery/Procedure H&P Update DATE OF PROCEDURE: September 10, 2021 DATE H&P PERFORMED: 08/27/21 H&P UPDATE INFORMATION: I have reviewed H&P completed within last 30 days, I have examined patient prior to procedure and No changes to prior documentation PREOP DIAGNOSIS: GEO to rule cardioembolic source of recent left CVA PLANNED PROCEDURE: Sami is a 75 yo man with PMHx of HTN and non smoker. He had CVA requiring tPA in 05/2021. He is here for GEO to for evaluation of intra-cardiac shunts and MANUEL. Operation Date: 09/10/21 12:00 Proposed Procedures p GEO(Not Applicable) - Dipti Shah MD
[2021-09-10 12:58] VITALS: BP 131/69; PULSE 64; RESP 16; TEMP 36.3; O2SAT 97
[2021-09-10 13:15] VITALS: BP 113/57; PULSE 55; RESP 18; O2SAT 94
--- NOTE | 2021-09-10 15:38 | ANE.PACU2 ---
Inpatient post-anesthesia follow up: Airway intact: Yes Vital signs: Temperature 97.3 F Pulse Rate 55 Respiratory Rate 18 Blood Pressure 113/57 Pulse Oximetry 94 Oxygen Delivery Me thod Room Air Oxygen Flow Rate Fraction of Inspir ed Oxygen Hydration adequate: Yes Nausea and vomiting: No Pain level: 1 Mental status: Baseline Additional Comments: EMR review
== END 2021-09-10 13:30 | disposition home or self-care (01) ==
PROVIDERS: PCP Hospitalist; Visit Provider Internal Medicine Cardiovascular Disease
PROC: (CPT 93312; principal; 2021-09-10 12:00)
DX: I63.512 Cerebral infarction due to unspecified occlusion or stenosis of left middle cerebral artery (principal); I10 Essential (primary) hypertension; E78.5 Hyperlipidemia, unspecified; I44.0 Atrioventricular block, first degree; Z79.82 Long term (current) use of aspirin
CPT/HCPCS: 93312; 93320; 93325; 96360; J2704; J7030

== ENCOUNTER 2022-01-06 13:31 | Outpatient (CLI) | payer MEDICARE, SELFPAY ==
--- NOTE | 2022-01-06 13:54 | MR_ITS ---
WS: [id number] MRI BRAIN WITHOUT CONTRAST HISTORY: I63.9 - Cerebral infarction, unspecified COMPARISON: None available. TECHNIQUE: Diffusion imaging, multiplanar T1, T2 and FLAIR imaging obtained. No evidence for acute infarct or hemorrhage. Jeffery-white matter differentiation is normal. Numerous T2 and FLAIR signal hyperintensities in the periventricular and subcortical white matter distribution. Predominantly involving the frontal and parietal lobes but do extend above the charlton radiata and int o the centrum semiovale ovale. Typical distribution for microvascular ischemic disease. No remote or acute infarcts or volume loss. Ventricles and extra-axial spaces are normal. No inferior displacement of cerebellar tonsils. The sella turcica and pituitary gland are unremarkabl e. Dural venous sinuses and tolowa dee-ni' of [place] demonstrate no abnormality on this unenhanced studies. Paranasal sinuses: Clear. Mastoid air cells: Normal. Calvarium and scalp: Intact. MR/MR head wo con* [id number] IMPRESSION: 1. No acute infarct or hemorrhage. 2. Mild atrophy with moderate small vessel ischemic changes throughout the [facility] te matter.
--- NOTE | 2022-01-06 13:54 | MR_ITS ---
WS: [id number] MRA ANGIOGRAPHY [place] OF [place] HISTORY: I63.9 - Cerebral infarction, unspecified COMPARISON: None available. TECHNIQUE: 3-D MR angiography is performed of the sun'aq of [place]. All images are reviewed including source images. Very mildly dominant LEFT vertebral artery. Both vertebral arteries are patent. Normal size basilar a rtery. Posterior cerebral arteries are normal caliber. Hypoplastic LEFT posterior communicating arter y. The RIGHT is normal size. Intracranial internal carotid arteries are intact. There is a smaller caliber LEFT M1 and M2 segments with slight paucity of vessels in the distal MCA territory but there is no focal high-grade stenosis . There is mild narrowing as seen on the prior CT angiogram involving the LEFT M1 segment which is pr obably due to atherosclerotic disease. Anterior communicating artery and the anterior cerebral arteri es are patent. No aneurysms. MR/MR angio head wo con [id number] IMPRESSION: 1. Smaller caliber LEFT middle cerebral artery but no high-grade stenosis or o cclusion. Mild distal LEFT M1 segment stenosis. 2. Mild paucity of vessels in the LEFT MCA territory. 3. No aneurysms.
== END 2022-01-06 13:32 | disposition home or self-care (01) ==
PROVIDERS: PCP Hospitalist; Visit Provider Specialist
DX: I63.9 Cerebral infarction, unspecified (principal)
CPT/HCPCS: 70544; 70551

== ENCOUNTER → 2022-02-04 09:25 | Outpatient (BNVA) | payer MEDICARE, SELFPAY | PROVIDERS: PCP Hospitalist; Visit Provider Specialist | DX: I66.02 Occlusion and stenosis of left middle cerebral artery (principal); I10 Essential (primary) hypertension; I20.0 Unstable angina; I44.0 Atrioventricular block, first degree; E78.5 Hyperlipidemia, unspecified; Z86.73 Personal history of transient ischemic attack (TIA), and cerebral infarction without residual deficits | CPT/HCPCS: 99214 ==

== ENCOUNTER → 2022-02-23 10:56 | Outpatient (BNVA) | payer MEDICARE, SELFPAY | PROVIDERS: PCP Hospitalist; Visit Provider Internal Medicine Cardiovascular Disease | DX: I63.512 Cerebral infarction due to unspecified occlusion or stenosis of left middle cerebral artery (principal); I10 Essential (primary) hypertension; E78.5 Hyperlipidemia, unspecified; I44.0 Atrioventricular block, first degree | CPT/HCPCS: 99214 ==

== ENCOUNTER 2022-07-28 08:57 | Outpatient (CLI) | payer MEDICARE, SELFPAY ==
--- NOTE | 2022-07-28 09:08 | ECG_ITS ---
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 Interpretive Statements NAME OF STUDY: LEXISCAN SESTAMIBI STRESS TEST INDICATION: Chest pain, Exertional shortness of breath, history of CVA PROCEDURE: At the baseline, the blood pressure was 115/58 mmHg with a heart rate of 53 bpm. The electrocardiogram showed sinus bradycardia with first-degree AV block, normal axis with normal ST and T's. The Lexiscan was infused over a period of 20 seconds. A total of 0.4 milligrams of Lexiscan was infused. The stress phase was continued for a total of 5 minutes. Heart rate at the end of the stress phase was 57 bpm with a blood pressure of 110/71 mmHg. The EKG at the peak infusion revealed sinus bradycardia with no significant ST-T wave changes. Sestamibi was injected 20 seconds after the Lexiscan infusion. Blood pressure at the end of the recovery phase was 99/65 mmHg with a heart rate of 64 beats per minute. CONCLUSION: 1. No significant EKG changes with the LexiScan infusion. 2. No LexiScan induced chest pain or cardiac arrhythmia. 3. Normal blood pressure and heart rate response. 4. Sestamibi/sestamibi perfusion scan pending; see separate report. Electronically Signed On 08-03-2022 10:57:52 PLASTICS PROCESS HAND by Dipti Shah M.D. [id number]
--- NOTE | 2022-07-28 09:16 | NMCV_ITS ---
NM princess perf SPECT r/s* [id number] Sami Mondragon Age: 76 Gender: M : 1945 Exam Date: 07/28/2022 09:16 Ordering Phys: Dipti Shah MD ([email or web address]) Technologist: PAULA Campa Exam Location: [facility] Indications: Chest pain, Exertional shortness of breath, history of CVA STRESS TEST Please see separate stress test report in [facility] for full findings IMAGE PROTOCOL Rest/Stress 1 Lexiscan Day Radiopharmaceutical Dose (mCi) Administration Site Administered by Rest: Tc-99m 10.0 IV PAULA Bell Sestamibi Stress:Tc-99m 32.9 IV PAULA Bell Sestamibi Rest: 28-Jul-2022 60 Discovery 630 Stress: 28-Jul-2022 30 Discovery 630 0.4mg Lexiscan. Images obtained in supine and prone position. SPECT RESULTS Technical Quality: Excellent Raw Data Analysis: Normal Image Corrections: No attenuation or motion correction applied Summed Stress Score: 4 Summed Rest Score: 4 Summed Difference Score: 1 PERFUSION FINDINGS Small sized perfusion abnormality of mild severity of mid inferolateral, apical lateral and apical anterior wall on rest images with improved tracer uptake on stress images. This is suggestive of attenuation artifact. FUNCTIONAL RESULTS (calculated via Gated SPECT) Stress Image LV EF (%): 66 Stress EDV (mL):114 TID: 1.03 Stress ESV (mL):39 FUNCTIONAL FINDINGS: The left ventricle is normal in size. Transient Ischemia Dilatation of 1. There is normal left ventricular systolic function. The left ventricular ejection fraction is normal with a value of 66%. There is normal left ventricular wall thickening. IMPRESSIONS 1. Myocardial perfusion imaging is normal. Attenuation artifact noted in inferolateral and apical lateral nesbitt. 2. Overall left ventricular systolic function is normal without regional wall motion abnormalities, LVEF=66%. 3. EKG portion of the study will be reported separately. 4. No prior similar studies to compare. Dipti Shah MD (Electronically Signed) Final Date: 04 August 2022 18:30 S
--- NOTE | 2022-07-28 09:16 | PC.NURSE ---
Patient comes in today for an exercise sestamibi stress test. He was limping on his right leg walking back to to [facility]. The patient stated that he had a fall recently and also had an injury to his right knee a few months back. His orders had a message that is was ok to change to a lexiscan sestamibi if needed. This nurse spoke extensively to the patient about each stress test and he wishes to proceed with the lexiscan sestamibi stress test.
[2022-07-28 09:22] VITALS: BMI 35.6
[2022-07-28] MEDS: regadenoson 0.4 Mg/5 ml Syringe IVP (10:48)
[2022-07-28 11:16] VITALS: BP 96/71; PULSE 60
== END 2022-07-28 08:58 | disposition home or self-care (01) ==
PROVIDERS: PCP Hospitalist; Visit Provider Internal Medicine Cardiovascular Disease
DX: I63.9 Cerebral infarction, unspecified (principal); I10 Essential (primary) hypertension
CPT/HCPCS: 36415; 78452; 93017; 96374; A9500; J2785

== ENCOUNTER → 2022-08-24 13:56 | Outpatient (BNVA) | payer MEDICARE, SELFPAY | PROVIDERS: PCP Hospitalist; Visit Provider Internal Medicine Cardiovascular Disease | DX: I44.0 Atrioventricular block, first degree (principal); I63.512 Cerebral infarction due to unspecified occlusion or stenosis of left middle cerebral artery; I10 Essential (primary) hypertension; E78.5 Hyperlipidemia, unspecified | CPT/HCPCS: 99214 ==

== ENCOUNTER → 2023-08-23 14:20 | Outpatient (BNVA) | payer MEDICARE, SELFPAY | PROVIDERS: PCP Hospitalist; Visit Provider Internal Medicine Cardiovascular Disease | DX: I63.512 Cerebral infarction due to unspecified occlusion or stenosis of left middle cerebral artery (principal); I10 Essential (primary) hypertension; E78.5 Hyperlipidemia, unspecified; I44.0 Atrioventricular block, first degree | CPT/HCPCS: 99214 ==

== ENCOUNTER 2024-04-16 08:50 | Emergency (ER) | payer MEDICARE, SELFPAY ==
[2024-04-16] VITALS (62 sets, daily range): BP systolic 126–166; BP diastolic 64–87; PULSE 71–116; RESP 14–40; TEMP 39; O2SAT 88–94; BMI 33.0
--- NOTE | 2024-04-16 09:19 | XRR_ITS ---
PROCEDURE INFORMATION: Exam: XR Chest Exam date and time: 04/16/2024 9:20 AM Age: 78 years old Clinical indication: Cough; Additional info: Possible sepsis TECHNIQUE: Imaging protocol: Radiologic exam of the chest. Views: 1 view. COMPARISON: CR XR chest 1V portable [id number] 06/18/2021 2:39 PM FINDINGS: Lungs: Both lungs demonstrate diffuse interstitial coarsening which is felt to be chronic. No lung mass or infiltrate. Pleural spaces: Unremarkable. No pleural effusion. No pneumothorax. Heart/Mediastinum: Unremarkable. No cardiomegaly. Bones/joints: Unremarkable. XR/XR chest 1V portable [id number] IMPRESSION: No acute findings.
--- NOTE | 2024-04-16 09:30 | ECG_ITS ---
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 Measurements Intervals Tappen Rate: 99 P: 31 OR: 197 QRS: -15 QRSD: 98 T: -7 QT: 324 QTc: 417 Interpretive Statements SINUS RHYTHM LOW QRS VOLTAGE IN PRECORDIAL LEADS [QRS DEFLECTION < 1.0 mV IN CHEST LEADS] PATTERN CONSISTENT WITH PULMONARY DISEASE Compared to ECG 06/18/2021 14:22:32 Sinus bradycardia no longer present First degree AV block no longer present Electronically Signed On 04-16-2024 19:42:29 CDT by Tom Nascimento M.D. [id number]
[2024-04-16] MEDS: SODIUM CHLORIDE 0.9% 1598 ML IV (09:40)
[2024-04-16 09:54] LABS: Blood Gas Operator Identificat AMH; Blood Gas Sample Site Not specified; Blood Gas Sample Type Venous; HCO3 VBG 29.9 mmol/L (24-28); PCO2 VBG 44.4 mmHg (41-51); PO2 VBG 32.1 mmHg (25-40); Venous Blood Gas Hematocrit 39.9 % (42-52); pH VBG 7.44 (7.32-7.42)
[2024-04-16 09:55] LABS: Basophils % 0.7 %; Hematocrit 39.1 % (37-53); Mean Corpuscular Hemoglobin 27.8 pg (27-33); Mean Corpuscular Volume 86.9 fl (82-101); Mean Platelet Volume 10.9 fL (7.4-10.4); Monocytes # 0.4 10^3/uL (0.2-0.9); Monocytes % 6.9 %; Neutrophils # 2.39 10^3/uL (1.8-7.7); Neutrophils % 39.3 %; Nucleated Red Blood Cells % 0 %; Platelet Count 133 10^3/cmm (157-399); Red Cell Distribution Width 15.1 % (12.1-15.1); White Blood Count 6.08 10^3/uL (3.29-11.43)
--- NOTE | 2024-04-16 10:01 | ED_ITS ---
HPI - General Adult 2 General: Chief complaint: General Medical Stated complaint: cough fever Time Seen by Provider: 04/16/24 09:18 History of Present Illness: This patient is a 78-year-old presenting with cough, fever, shortness of breath, body aches, poor appetite. He reports the symptoms started about a week ago. His interjects and reports that he has been having some problems with cough for about 3 months. Their primary care doctor is at [facility] in [place] and noted some scarring on a chest x-ray from about 3 months ago. He was then referred to a spirits model, also at [facility]. He was told that the scarring could be from a number of different things. Apparently he and his remodel the house and she developed histoplasmosis during that. He was not diagnosed but it is possible that he had a subclinical infection. 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 His also notes that he had a CPAP machine which has been recalled because of infection problems. He is not a smoker and has never smoked. He tells me that about a month ago or maybe 6 weeks ago he was having a lot of coughing and was put on a 21-day course of antibiotics. He said that made absolutely no difference. He was not running fevers at that time. Because of the persistent cough he was then started on prednisone, 20 mg daily. That was started 3 days ago, he has not taken his dose this morning. He also was started on Trelegy inhaler. He has not noted any improvement with any of these treatments. His fever has been going on for approximately the past week. It has been as high as 101 and 102 at home. He says it normally comes down with some Tylenol but he has not taken anything yet this morning. He did take a home COVID test that was negative. His other medications include antihypertensives, statin, joint supplements. Related Data Home Medications Medication Instructions Recorded Confirmed aspirin 81 mg tablet,delayed 81 mg PO DAILY 08/27/21 08/23/23 release (Adult Low Dose Aspirin) coenzyme Q10 10 mg capsule (Co 10 mg PO BID 08/27/21 08/23/23 Q-10) guaifenesin 1,200 mg tablet, 600 mg PO BID 08/27/21 08/23/23 extended release 12 hr (Mucinex) docusate sodium 100 mg tablet 100 mg PO DAILY 09/02/21 08/23/23 amlodipine 5 mg tablet 10 mg PO DAILY 02/04/22 08/23/23 atorvastatin 80 mg tablet 40 mg PO DAILY 02/04/22 08/23/23 naproxen sodium 220 mg tablet 220 mg PO BID 08/24/22 08/23/23 (Aleve) Previous Rx's Medication Instructions Recorded losartan 50 mg tablet 100 mg (2 x 50 mg) PO DAILY #180 07/29/21 tabs benzonatate 100 mg capsule 100 mg PO Q6H PRN cough #14 caps 04/16/24 cefdinir 300 mg capsule 300 mg PO BID 7 days #14 caps 04/16/24 Allergies Allergy/AdvReac Type Severity Reaction Status Date / Time latex Allergy Unknown Unknown Verified 08/23/23 14:27 PFSH ED 2 PFSH: Medical History Cerebrovascular accident Dyslipidemia HTN (hypertension) Social History Smoking and tobacco/nicotine status: never used tobacco/nicotine Physical Exam 2 Const: COMMON NORMALS: no acute distress, patient oriented x3, no limitations and alert GENERAL APPEARANCE: cooperative and comfortable HENMT: HEAD & SCALP: normal to inspection FACE & SINUS: normal facial exam Eye: GENERAL EYE: appearance normal, both eyes and all related structures Neck/C-Spine: COMMON NORMALS: supple, no meningeal signs and no JVD Chest: COMMONS NORMALS: normal inspection of the chest Resp: AUSCULTATION: crackles, diminished lung sounds and egophony left upper Cardio: COMMON NORMALS: no JVD, regular rate, regular rhythm and No murmurs present (Cardio) RATE: regular rate RHYTHM: regular rhythm GI: COMMON NORMALS: Soft to palpation and non-tender INSPECTION: Yes normal to inspection AUSCULTATION: Yes normoactive bowel sounds and Yes Hyperactive bowel sounds present PALPATION: Yes Soft to palpation Back/Pelvis: COMMON NORMALS: thoracic and lumbar spine normal to inspection Extremity: COMMON NORMALS: normal to inspection Neuro: COMMON NORMALS: patient oriented x3, moves all extremities, no focal motor deficits and no sensory deficits noted SENSORIUM/ORIENTATION: Yes alert MENINGEAL SIGNS: Yes no meningeal signs Psych: COMMON NORMALS: mental status grossly normal, cooperative and normal affect Skin: COMMON NORMALS: no rashes or lesions noted and turgor normal GENERAL SKIN EXAM: no rashes or lesions noted and turgor normal Course 2 Vital Signs: Vital signs: Vital Signs Temperature 102.2 F H 04/16/24 09:08 Pulse Rate 82 04/16/24 12:25 Respiratory Rate 27 H 04/16/24 12:25 Blood Pressure 130/64 04/16/24 12:25 Pulse Oximetry 90 04/16/24 12:25 Oxygen Delivery Me thod Room Air 04/16/24 09:08 MDM - General Adult Medical Decision Making Chronic cough with scarring noted on chest x-ray. He is currently seeing a spirits model in [place]. He was recently on a 3-week course of antibiotic prior to the fever starting. He is currently on prednisone for 2 days and has had a fever for 7 days. He also notes that his oxygen level was low today, 88% at home. He does not normally use home oxygen. Work up om the ED shows no infiltrate on CT chest - normal WBC including differential. His oxygen remained around 94% in the ED. Fever was treated and IV fluids, IV abx were given. Pulmonology at [facility] was consulted and agreed with home with antibiotics and close follow up. Lab Data 04/16/24 09:37 04/16/24 09:37 Radiology Impressions Chest X-Ray 04/16/24 09:19 IMPRESSION: No acute findings. Chest CTA 04/16/24 11:10 IMPRESSION: 1. No acute findings. 2. Chronic lung and pleural changes noted Laboratory Results WBC 6.08 10^3/uL (3.29-11.43) 04/16/24 09:37 RBC 4.50 10^6/uL (3.85-5.65) 04/16/24 09:37 Hgb 12.50 g/dL (11.27-16.99) 04/16/24 09:37 Hct 39.1 % (37-53) 04/16/24 09:37 MCV 86.9 fl (82-101) 04/16/24 09:37 MCH 27.8 pg (27-33) 04/16/24 09:37 MCHC 32.0 g/dL (30-55) 04/16/24 09:37 RDW 15.1 % (12.1-15.1) 04/16/24 09:37 Plt Count 133 10^3/cmm (157-399) L 04/16/24 09:37 MPV 10.9 fL (7.4-10.4) H 04/16/24 09:37 Neut % (Auto) 39.3 % 04/16/24 09:37 Lymph % (Auto) 49.0 % 04/16/24 09:37 [place] % (Auto) 6.9 % 04/16/24 09:37 Eos % (Auto) 0.0 % 04/16/24 09:37 Baso % (Auto) 0.7 % 04/16/24 09:37 Neut # (Auto) 2.39 10^3/uL (1.8-7.7) 04/16/24 09:37 Lymph # (Auto) 3.0 10^3/uL (0.8-4.8) 04/16/24 09:37 [place] # (Auto) 0.4 10^3/uL (0.2-0.9) 04/16/24 09:37 Eos # (Auto) 0.0 10^3/uL (0.0-0.8) 04/16/24 09:37 Baso # (Auto) 0.0 10^3/uL (0.0-0.1) 04/16/24 09:37 Nucleated RBC % (auto) 0 % 04/16/24 09:37 Nucleated RBCs # 0.0 /100WBC 04/16/24 09:37 Specimen Type Venous 04/16/24 09:37 Sample Site Not specified 04/16/24 09:37 Dada Test N/a 04/16/24 09:37 VBG pH 7.44 (7.32-7.42) H 04/16/24 09:37 VBG pCO2 44.4 mmHg (41-51) 04/16/24 09:37 VBG pO2 32.1 mmHg (25-40) 04/16/24 09:37 VBG HCO3 29.9 mmol/L (24-28) H 04/16/24 09:37 VBG Base Excess 5.0 mmol/L (-3.0-3.0) H 04/16/24 09:37 VBG Hematocrit 39.9 % (42-52) L 04/16/24 09:37 O2 Delivery Device None 04/16/24 09:37 Collection Systems Modeler ID [email or web address] 04/16/24 09:37 Sodium 138 mmol/L (136-145) 04/16/24 09:37 Potassium 3.6 mmol/L (3.5-5.1) 04/16/24 09:37 Chloride 100 mmol/L (98-107) 04/16/24 09:37 Carbon Dioxide 25 mmol/L (22-29) 04/16/24 09:37 Anion Gap 16.6 (5-19) 04/16/24 09:37 BUN 11 mg/dL (8-23) 04/16/24 09:37 Creatinine 1.0 mg/dL (0.7-1.2) 04/16/24 09:37 GFR Calculation Not Reportable 04/16/24 09:37 Glucose 120 mg/dL (65-115) H 04/16/24 09:37 Calculated Osmolality 287 mOsm/kg (285-295) 04/16/24 09:37 Lactic Acid 1.7 mmol/L (0.5-2.2) 04/16/24 09:37 Calcium 8.6 mg/dL (8.5-10.5) 04/16/24 09:37 Total Bilirubin 0.6 mg/dL (0.15-1.2) 04/16/24 09:37 AST 68 U/L (0-40) H 04/16/24 09:37 ALT 85 U/L (0-41) H 04/16/24 09:37 Alkaline Phosphatase 78 U/L (40-130) 04/16/24 09:37 Total Protein 7.2 g/dL (6.6-8.7) 04/16/24 09:37 Albumin 3.4 g/dL (3.5-5.2) L 04/16/24 09:37 Globulin 3.8 g/dL (1.3-4.6) 04/16/24 09:37 Urine Color Dark yellow (Yellow) A 04/16/24 10:15 Urine Appearance Clear (CLEAR) 04/16/24 10:15 Urine pH 7.5 (5-7) 04/16/24 10:15 Ur Specific Turner 1.023 (1.005-1.030) 04/16/24 10:15 Urine Protein 1+ (Negative) A 04/16/24 10:15 Urine Glucose (UA) Negative (Normal) 04/16/24 10:15 Urine Ketones Trace (Negative) 04/16/24 10:15 Urine Blood Negative (Negative) 04/16/24 10:15 Urine Nitrate Negative (Negative) 04/16/24 10:15 Urine Bilirubin Negative (Negative) 04/16/24 10:15 Urine Urobilinogen 4.0 mg/dL (Negative) H 04/16/24 10:15 Ur Leukocyte Esterase Negative (Negative) 04/16/24 10:15 Urine RBC 0-2 /hpf (0-2) 04/16/24 10:15 Urine WBC 0-5 /hpf (0-5) 04/16/24 10:15 Ur Squamous Epith Cells 0-5 /hpf (0-5) 04/16/24 10:15 Amorphous Sediment Not Reportable 04/16/24 10:15 Urine Bacteria None seen /hpf (NONE) 04/16/24 10:15 Hyaline Casts 3.71 /lpf 04/16/24 10:15 SARS-CoV-2 Ag (Rapid) negative (Negative) 04/16/24 09:59 All radiology interpretation(s) finalized by discharge Discharge Plan Discharge Patient Disposition: Home Clinical Impression: Fever, Chronic cough Condition: Stable Prescriptions: New cefdinir 300 mg capsule 300 mg PO BID 7 Days Qty: 14 0RF benzonatate 100 mg capsule 100 mg PO Q6H PRN (Reason: cough) Qty: 14 0RF No Action atorvastatin 80 mg tablet 40 mg PO DAILY coenzyme Q10 [Co Q-10] 10 mg capsule 10 mg PO BID Mucinex 1,200 mg tablet extended release 12hr 600 mg PO BID aspirin [Adult Low Dose Aspirin] 81 mg tablet,delayed release (DR/EC) 81 mg PO DAILY amlodipine 5 mg tablet 10 mg PO DAILY naproxen sodium [Aleve] 220 mg tablet 220 mg PO BID losartan 50 mg tablet 100 mg PO DAILY Qty: 180 3RF docusate sodium 100 mg Tablet 100 mg PO DAILY Discharge Orders: Discharge ED (Routine); Ordered 04/16/24 Ordered By: Josselin Spain Referrals: Devon Vasques MD [Primary Care Provider] - Kori Gray MD [Referring] - Patient Instructions: Opioid Safety, Pain Management Activity Restrictions/Additional Instructions: Return to the ED if worsening shortness of breath or other new or worse symptoms. Start the antibiotics tomorrow morning. Continue your other medications. Coding Level of Care Code ED Customer Service Advisor for Vlad Herr
[2024-04-16 10:11] LABS: Alanine Aminotransferase 85 U/L (0-41); Albumin Level 3.4 g/dL (3.5-5.2); Alkaline Phosphatase 78 U/L (40-130); Anion Gap 16.6 (5-19); Aspartate Amino Transferase 68 U/L (0-40); Blood Urea Nitrogen 11 mg/dL (8-23); Calcium 8.6 mg/dL (8.5-10.5); Carbon Dioxide 25 mmol/L (22-29); Chloride 100 mmol/L (98-107); Creatinine Clr Calc Pharmacy 81.6368; Globulin 3.8 g/dL (1.3-4.6); Glucose 120 mg/dL (65-115); Osmolality Calculated 287 mOsm/kg (285-295); Potassium 3.6 mmol/L (3.5-5.1); Sodium 138 mmol/L (136-145); Total Bilirubin 0.6 mg/dL (0.15-1.2); Total Protein 7.2 g/dL (6.6-8.7)
[2024-04-16 10:12] LABS: Lactic Sepsis W/Reflex 1.7 mmol/L (0.5-2.2)
[2024-04-16 10:14] LABS: Slide Review Slide Review Perform
[2024-04-16] MEDS: acetaminophen 500 mg Tablet 1000 MG PO (10:14)
[2024-04-16 10:20] LABS: Charge for UA Resulting for Rev
[2024-04-16 10:25] LABS: Bilirubin Urine Negative (Negative); Blood Urine Negative (Negative); Glucose Urine UA Negative (Normal); Ketones Urine Trace (Negative); Leukocyte Esterase Urine Negative (Negative); Nitrate Urine Negative (Negative); Protein Urine 1+ (Negative); Specific Gravity, Urine 1.023 (1.005-1.030); Urine Appearance Clear (CLEAR); Urine Color Dark Yellow (Yellow); pH Urine 7.5 (5-7)
[2024-04-16 10:30] LABS: Bacteria Urine None Seen /hpf; Hyaline Casts Urine 3.71 /lpf; RBC Urine 0-2 /hpf (0-2); Squamous Epithelial Cell Urine 0-5 /hpf (0-5); WBC Urine 0-5 /hpf (0-5)
[2024-04-16 10:31] LABS: SARS Covid-2 Antigen negative (Negative)
--- NOTE | 2024-04-16 11:10 | CTR_ITS ---
PROCEDURE INFORMATION: Exam: CTA Chest With Contrast Exam date and time: 04/16/2024 11:27 AM Age: 78 years old Clinical indication: Pain; Chest pressure; Additional info: Cp, fever TECHNIQUE: Imaging protocol: Computed tomographic angiography of the chest with contrast. Exam focused on the arteries. 3D rendering (Not supervised by radiologist): MIP and/or 3D reconstructed images were created by the technologist. Radiation optimization: All CT scans at this facility use at least one of these dose optimization techniques: automated exposure control; mA and/or kV adjustment per patient size (includes targeted exams where dose is matched to clinical indication); or iterative reconstruction. Contrast material: OMNI 350; Contrast volume: 63 ml; Contrast route: INTRAVENOUS (IV); COMPARISON: CR XR chest 1V portable [id number] 04/16/2024 9:20 AM RADIATION DOSE METRICS: Total DLP (mGy-cm): 494.68 FINDINGS: Pulmonary arteries: Normal. No pulmonary emboli. Aorta: Unremarkable. No aortic aneurysm. No aortic dissection. Lungs: Both lungs demonstrate prominent subpleural interstitial fibrosis which is more pronounced in both lung bases. I see no lung mass or infiltrate. Pleural spaces: Chronic pleural thickening is noted posteriorly. Heart: Unremarkable. No cardiomegaly. No pericardial effusion. Lymph nodes: Unremarkable. No enlarged lymph nodes. Bones/joints: Unremarkable. No acute fracture. Soft tissues: Unremarkable. CT/CT angio chest PE protcl [id number] IMPRESSION: 1. No acute findings. 2. Chronic lung and pleural changes noted
[2024-04-16] MEDS: iohexol 350 mg/mL 500 mL Btl (per mL) IV (11:32)
[2024-04-16] MEDS: cefTRIAXone 1,000 mg SDV 1000 MG IVP (11:42)
== END 2024-04-16 14:03 | disposition home or self-care (01) ==
PROVIDERS: Emergency Provider Emergency Medicine; PCP Hospitalist
DX: R05.3 Chronic cough (principal); R50.9 Fever, unspecified; Z79.82 Long term (current) use of aspirin; Z11.52 Encounter for screening for COVID-19; E78.5 Hyperlipidemia, unspecified; I10 Essential (primary) hypertension; Z86.73 Personal history of transient ischemic attack (TIA), and cerebral infarction without residual deficits
CPT/HCPCS: 71045; 71275; 80053; 81003; 81015; 82803; 83605; 85025; 87040; 87426; 93005; 96361; 96374; 99285; J0696; J7030; Q9967